=== PATIENT | female | born 2000 | race African-American/Black ===

== ENCOUNTER 2023-02-05 13:47 | Emergency (ER) | payer OTHER, SELFPAY ==
--- NOTE | ~2023-02-05 | XR_ITS ---
EXAMINATION: XR lumbar spine min 4V DATE: 02/05/2023 15:28 INDICATION: Low back pain TECHNIQUE: Anteroposterior, lateral, and bilateral oblique views of the lumbar spine, and cone-down l ateral view of the lumbosacral junction were obtained. COMPARISON: None. FINDINGS: No fracture, dislocation, or subluxation. The vertebral body heights, alignment, and interv ertebral disc spaces are normal. The paravertebral soft tissues are unremarkable. IMPRESSION: 1. No acute osseous abnormality. Reviewed, dictated and finalized at location L.
[2023-02-05 13:49] VITALS: BP 99/66; PULSE 108; RESP 20; TEMP 36.8; O2SAT 100
[2023-02-05] MEDS: ACETAMINOPHEN 500 MG TABLET 1000 MG PO (15:10)
[2023-02-05] MEDS: KETOROLAC (*BKC) 60 MG/2 ML VIAL IM (15:14)
--- NOTE | 2023-02-05 15:36 | ED.BACK ---
HPI - Back Pain/Injury General Chief Complaint: Back Pain/Injury Stated Complaint: back pain Time Seen by Provider: 02/05/23 14:20 Source: patient Mode of arrival: ambulatory Limitations: no limitations History of Present Illness HPI Narrative: Patient is a 22 y/o female who presents to the ED with complaints of low back pain. Patient reports the pain has been ongoing intermittently for the last couple of weeks. Worse with movement, worse with standing upright for long periods of time. She denies any known injury, but does report frequent heavy lifting with her job. Pain became worse today and began radiating down her posterior left leg. Does not radiate to abdomen. Patient has not tried anything for pain. She denies any saddle anesthesia, weakness of her lower extremities, abdominal pain, nausea, vomiting, incontinence of bowel or bladder, dysuria, hematuria. Patient does report she was told she had a UTI a few weeks ago at [facility], but was not prescribed antibiotics at that time. Related Data Allergies Allergy/AdvReac Type Severity Reaction Status Date / Time No Known Allergies Allergy Verified 02/05/23 13:52 Review of Systems Review of Systems: CONSTITUTIONAL: Denies fever, chills, or sweats. GASTROINTESTINAL: Denies abdominal pain, nausea, vomiting, or diarrhea. GENITOURINARY: Denies dysuria or hematuria. MUSCULOSKELETAL: See HPI. NEUROLOGIC: See HPI. All systems reviewed & are unremarkable except as noted in HPI and below Exam Narrative: GENERAL: Well appearing, thin, non-toxic, in no acute distress. HEAD: Normocephalic, atraumatic. NECK: Supple. No adenopathy, no masses. RESPIRATORY: Airway patent, respirations nonlabored. Clear to auscultation bilaterally, no rales, rhonchi, wheezing. CARDIOVASCULAR: Regular rate and rhythm without murmurs, rubs, or gallops. Peripheral pulses 2+ and equal bilaterally. MUSCULOSKELETAL: Moves all extremities. Strength/ROM intact without gross deformities. No significant midline lumbar spinal tenderness. Tenderness to palpation throughout left-sided lumbosacral region, no particular SI joint tenderness. No bony deformities. Sensation intact. Negative straight leg raise on left. Negative CVA tenderness. SKIN: Warm, dry, normal color. No rashes. NEURO: A&O X3. Speech clear. Cranial nerves II-XII grossly intact. Steady gait. No ataxic movements. PSYCHIATRIC: Appropriate mood and affect. Normal interaction. Course Vital Signs Vital signs: Vital Signs Temperature 98.2 F 02/05/23 13:49 Pulse Rate 108 H 02/05/23 13:49 Respiratory Rate 20 02/05/23 13:49 Blood Pressure 99/66 L 02/05/23 13:49 Pulse Oximetry 100 02/05/23 13:49 Oxygen Delivery Room Air 02/05/23 13:49 Temperature 98.2 F 02/05/23 13:49 Pulse Rate 108 H 02/05/23 13:49 Respiratory Rate 20 02/05/23 13:49 Blood Pressure 99/66 L 02/05/23 13:49 Pulse Oximetry 100 02/05/23 13:49 Oxygen Delivery Room Air 02/05/23 13:49 MDM - Back Pain/Injury MDM Narrative Medical decision making narrative: Patient presented to ED with several week history of low back pain, worse today. Patient's pain is positional and localized to left-sided paraspinal muscles without signs of cord compression or cauda equina. Normal neurologic exams. No red flag symptoms. No fever noted and no significant risk factors for osteomyelitis or spinal epidural abscess. No symptoms or signs to suggest pain is referred from abdominal or source. X-ray of lumbar spine without acute abnormalities. Patient denying urinary symptoms, however she did report a possible diagnosis of UTI a few weeks ago but was not treated for this. Urinalysis here today consistent with infection with 1+ leuk esterase, 21-50 WBC. Sent for culture. Will treat with Keflex, given first dose in the ED. Patient feeling better with supportive therapy. Resting comfortably on reevaluation. Vitals have remained stable. She am
[2023-02-05 15:39] LABS: Appearance Urine Clear (Clear); Bacteria Urine None Seen /hpf; Bilirubin Urine Negative (Negative); Color Urine Yellow (Yellow); Glucose Urine UA Negative (Negative); Ketones Urine Negative (Negative); Leukocyte Esterase Ur 1+ LEU/UL (Negative); Nitrate Urine Negative (Negative); Protein Urine Trace mg/dL (Negative); Specific Grav Ur 1.025 (1.001-1.035); Squamous Epithelial Cell Urine Occasional /hpf (Few); WBC Urine 21-50 /hpf
[2023-02-05 15:40] LABS: Add Urine Microscopic? YES
[2023-02-05] MEDS: CEPHALEXIN 500 MG CAPSULE PO (16:01)
[2023-02-05 18:15] VITALS: BP 99/60; PULSE 80; RESP 16; O2SAT 100
== END 2023-02-05 18:15 | disposition home or self-care (01) ==
PROVIDERS: Emergency Provider Physician Assistant; PCP Nurse Practitioner Family
DX: M54.16 Radiculopathy, lumbar region (principal); S39.012A Strain of muscle, fascia and tendon of lower back, initial encounter; N30.01 Acute cystitis with hematuria; X58.XXXA Exposure to other specified factors, initial encounter
CPT/HCPCS: 72110; 81001; 81025; 87086; 87088; 96372; 99283; A9270; J1885

== ENCOUNTER 2024-12-03 14:43 | Emergency (ER) | payer MEDICAID, SELFPAY ==
[2024-12-03 14:53] VITALS: BP 120/61; PULSE 91; RESP 20; TEMP 36.8; O2SAT 100
--- NOTE | 2024-12-03 14:53 | ED.FEMALEGU ---
HPI - Female Genitourinary General Chief complaint: OB/Uterine Contractions Stated complaint: cramping Time Seen by Provider: 12/03/24 14:54 Source: patient, RN notes reviewed and old records reviewed Mode of arrival: ambulatory Limitations: no limitations History of Present Illness HPI Narrative: 24 year old female accompanied by significant other [facility] who is approximately 18-19 weeks with complaints of 2 week duration with discomfort in buttock which was worse yesterday. Patient reports that intermittent episodes of gluteal pain that is sharp and rates pain 5-6. Patient reports that the lower abdomen groin area discomfort is like a pulling sensation at times but not sharp pain. Patient reports that approximately 2 weeks ago had small amount of white discharge and was told to use OTC Monistat by SENIOR ACCOUNT CLERK which she did. Patient reports that she has been followed by Maite Krishnamurthy secondary connector armature at [facility] in [place]. Patient reports that she has not called her office about complaints of gluteal buttock pain or any lower abdomen cramping pulling sensation. Patient denies any fevers, chills or any burning or pain with urination. reports that she has been drinking plenty of water. MD elicited complaint: other (buttock gluteal pain and some lower groin cramping) Onset (ago): week(s) (2 weeks increased since yesterday) Location of symptoms: pelvis (lower abdomen pulling cramping at times) and other (buttocks) Severity: moderate Severity scale (1-10): 5 (buttocks) Quality of pain: sharp Consistency: intermittent Vaginal discharge: none Vaginal bleeding: none Treatment prior to arrival: none Date of Last Menstrual Period: 06/14/24 Expected Date of Delivery: 04/29/25 Related Data Home Medications ?Medication ?Instructions ?Recorded ?Confirmed ?Last Taken ?Type No Home Medications 12/03/24 12/03/24 Unknown History Allergies Allergy/AdvReac Type Severity Reaction Status Date / Time No Known Allergies Allergy Verified 12/03/24 16:28 Review of Systems Review of Systems: CONSTITUTIONAL: Denies fever, chills, or sweats. EYES: Denies visual changes, redness, or discharge. ENT: Denies rhinorrhea, congestion, sore throat, or otalgia. CARDIOVASCULAR: Denies chest pain, palpitations, or edema. RESPIRATORY: Denies cough or dyspnea. GASTROINTESTINAL: reports lower pelvic pulling sensation, crampy denies any, nausea, vomiting, or diarrhea. GENITOURINARY: Denies dysuria or hematuria. SKIN: Denies rash or itching. MUSCULOSKELETAL: Denies back pain, joint pain, reports intermittent sharp pain to the gluteal buttock region for the past 2 weeks NEUROLOGIC: Denies headache, numbness, or weakness. PSYCHIATRIC: Denies anxiety or depression. All systems reviewed & are unremarkable except as noted in HPI and below PMFSH Past Medical History Medical History (Updated 12/03/24 @ 16:47 by Hannah Da Silva NP) Ovary, inflammation surgery to remove inflammatory tissue Social History Social History (Updated 12/03/24 @ 16:31 by Hannah Da Silva NP) Smoking status: Never smoker Alcohol intake: former Substance use type: does not use Living arrangements: other Additional living arrangements comments: with significant other Gender identity (if verbalized by the patient): Female Comments At time of signature, agree with nursing past medical, surgical, social and family history. There is no relevant family history pertinent to the presenting complaint Exam Narrative: GENERAL: Well-appearing, well-nourished, and in no acute distress. HEAD: Normocephalic, atraumatic. EYES: PERRLA and EOMI. ENT: Nares clear, no rhinorrhea or epistaxis. Mucous membranes moist. NECK: Supple. no lymphadenopathy CHEST: Clear to auscultation. No respiratory distress. SAO2 100% on room air HEART: Regular rate and rhythm. No murmur heard. Normal peripheral pulses. ABDOMEN: Soft, nontender on palpation, 18-19 weeks , normal active bowel sounds, reports intermittent sharp buttock/gluteal pain denies any pain in lower back or in legs. no difficulty passing urine or stool. EXTREMITIES: Normal range of motion. No edema. SKIN: Warm, dry, no rash. NEURO: No focal deficits. Alert and oriented x3. Course Course Emergency Course: Patient is aware of diagnosis, understands and agrees to treatment plan.? Anticipatory guidance given.? Patient agrees to follow-up as directed and is aware of reasons to seek care at the emergency department. Portions of this record may have been created with voice recognition software Level of Care: Express Care Visit Vital Signs Vital signs: Vital Signs Temperature 36.8 C 12/03/24 14:53 Pulse Rate 91 04/26/25 14:53 Respiratory Rate 20 12/03/24 14:53 Blood Pressure 120/61 12/03/24 14:53 Pulse Oximetry 100 12/03/24 14:53 Oxygen Delivery Room Air 12/03/24 14:53 Temperature 36.8 C 12/03/24 14:53 Pulse Rate 91 12/03/24 14:53 Respiratory Rate 20 12/03/24 14:53 Blood Pressure 120/61 12/03/24 14:53 Pulse Oximetry 100 12/03/24 14:53 Oxygen Delivery Room Air 12/03/24 14:53 Reviewed Transfer Transfered to: [facility] Transportation: Other (private car with significant other) Transfer rationale: Patient is 18-19 weeks having some lower abdomen pulling cramping sensation intermittent mild and sharp intermittent pain to buttock/gluteal area non radiating for 2 week duration need further testing Accepting physician: Dr Miranda Transfer comments: To [facility] ED per private car with significant other MDM - Female Genitourinary MDM Narrative Medical decision making narrative: Call placed to the emergency department at [facility] and spoke with Lesvia BHATTI with condition update,VS, urine report and PMH reviewed with Dr Miranda accepting patient for transfer. Differential Diagnosis Differential diagnosis: Likely urinary tract infection, cystitis and other (pelvic discomfort, sharp buttock gluteal pain, possible abnormality) Medical Records Attestation: I reviewed the patient's medical records. Lab Data Attestation: I reviewed the patient's lab results. Labs: Lab Results 12/03/24 Range/Units 15:11 POC Urine Color Yellow POC Urine Clarity Clear POC Urine pH 7.0 POC Ur Specif [place] 1.020 POC Urine Protein Negative (Negative) POC Ur Glucose (UA) Negative (Negative) POC Urine Ketones Negative (Negative) POC Urine Blood Negative (Negative) POC Urine Nitrite Negative (Negative) POC Urine Bilirubin Negative (Negative) POC Urine Urobilinogen 0.2 POC U Leukocyte Esteras 1+ (Negative) reviewed Critical Care Time Critical Care Time Critical Care Time: No Discharge Plan Discharge Clinical Impression: Gluteal pain, Pelvic cramping Patient Disposition: Acute Care Hospital Condition: Stable Patient Language: [place] Prescriptions: No Action No Home Medications Follow-up/Referrals: PHYSICIAN NOT ON STAFF,NONSTAFF [Primary Care Provider] - Time of Disposition: 14:43 Quality [place] Coma Scale Eyes: Open Verbal: Oriented and Alert Motor: Follows Commands Jero Coma Total Score: 15
[2024-12-03 15:13] LABS: EDUAAPPEAR Clear; EDUABILI Negative (Negative); EDUABLOOD Negative (Negative); EDUACOLOR1 Yellow; EDUAGLUCOSE Negative (Negative); EDUAKETONE Negative (Negative); EDUALEUKO 1+ (Negative); EDUANITRATE Negative (Negative); EDUAPROTEIN Negative (Negative); EDUAUROBILI 0.2
== END 2024-12-03 15:45 | disposition short-term general hospital (02) ==
PROVIDERS: Emergency Provider Registered Nurse
DX: O99.891 Other specified diseases and conditions complicating pregnancy (principal); Z3A.00 Weeks of gestation of pregnancy not specified; R52 Pain, unspecified; R10.2 Pelvic and perineal pain
CPT/HCPCS: 81003; 99212; G0463

== ENCOUNTER 2024-12-03 16:27 | Emergency (ER) | payer MEDICAID, SELFPAY ==
--- NOTE | ~2024-12-03 | US_ITS ---
LIMITED OBSTETRIC ULTRASOUND Ordering provider: Lesvia Levine APRN History: . low abdom pain, recent ovarian surgery, . Comparison: None. FINDINGS: PRESENTATION: Vertex. Longitudinal lie. PLACENTAL LOCATION: Posterior No previa. HEART RATE: 146 bpm (normal is between 110 to 160 bpm). OTHER: Right ovary measures 2.3 x 1.5 x 1.6 cm. Left ovary measures 2.8 x 2.2 x 2.6 cm. IMPRESSION: Single live fetus of cephalic presentation. Reviewed, dictated and finalized at location A.
--- OUTSIDE RECORDS SUMMARY | 2024-12-03 16:29 | XMS_ITS | Referral Summary ---
Author Organization [facility] Address [address] [place] [id number] Care Team Providers Care Rn Examiner Name Role Phone Unknown, Notinfile Primary Care Provider Unavail able Allergies No known active allergies Social History Tobacco Use Types Packs/Day Years Used Date Smoking Tobacco: Never Assessed Personal Safety Answer Date Recorded Getting School Help Needed Not on file 04/17 Comments No Sex and Gender Information Value Date Recorded Sex Assigned at Not on file Legal Sex Female 11:39 PM PRODUCT DEVELOPMENT COORDINATOR Gender Identity Not on file Sexual Orientation Not on file Last Filed Vital Signs Vital Sign Reading Time Taken Comments Blood Pressure 114/64 03/16/2023 2:50 PM CDT Pulse 86 03/16/2023 2:50 PM CDT Temperature 36.9 C (98.4 F) 03/16/2023 11:41 AM CDT Respiratory Rate 18 03/16/2023 11:41 AM CDT Oxygen Saturation 100% 03/16/2023 2:50 PM CDT Inhaled Oxygen Concentration - - Weight 55.5 kg (122 lb 5.7 oz) 03/16/2023 11:41 AM CDT Height 165.1 cm (5' 5 ) 03/16/2023 11:41 AM CDT Body Mass Index 20.36 03/16/2023 11:41 AM CDT Plan of Treatment Not on file [place] [address] [place] [id number] Care Teams Rn Examiner Relationship Specialty Start Date End Date Unknown, Notinfile PCP - General 12/18/22
--- OUTSIDE RECORDS SUMMARY | 2024-12-03 16:29 | XMS_ITS | Encounter Summary ---
Author Organization [facility] Address [address] [place] [id number] Care Team Providers Care Employment Specialist Name Role Phone None, Provider Primary Care Provider Rd Blackman MD Primary Care Provider Encounter Details Date Type Department Care Team (Late st Contact Info) Description 06/22/2024 Prep for Procedure [facility] [place] [address] Rd Herring MD [address] [place] [address] Social History Tobacco Use Types Packs/Day Years Used Date Smoking Tobacco: Never Smokeless Tobacco: Never Comments:Currently vaping Alcohol Use Standard Drinks/Week Comments No 0 (1 standard drink = 0.6 oz pur e alcohol) Comments No Sex and Gender Information Value Date Recorded Sex Assigned at Not on file Legal Sex Female 6:54 PM CDT Gender Identity Not on file Sexual Orientation Not on file documented as of this encounter Functional Status * Calculated C-SSRS Risk Score (Lifetime/Recent) Answer Date of Assessment Author Status No Risk Indicated 06/23/2024 12:25 PM Tamiko Camarillo RN Active * [place] Suicide Severity Rating Scale (Screener/Recent Self-Report) Question Answer Date of Assessment Author Status 1. Wish to be (Past 1 Month) No 06/23/2024 12:25 PM Tamiko Camarillo RN Active 2. Non-Specific Active Suicidal Thoughts (Past 1 Month) No 06/23/2024 12:25 PM Tamiko Camarillo RN Active 6. Suicidal Behavior (Lifetime) No 06/23/2024 12:25 PM Tamiko Camarillo RN Active documented as of this encounter Plan of Treatment Not on file documented as of this encounter Results * (ABNORMAL) CBC W/DIFF AUTOMATED (06/23/2024 12:06 PM COSTUME MISTRESS) [facility] WBC 10.08 4.5 - 11.0 x10'3/uL 06/23/2024 12:14 PM [facility] RBC 4.46 4.20 - 5.40 x10'6/uL 06/23/2024 12:14 PM [facility] HGB 12.2 12.0 - 16.0 G/DL 06/23/2024 12:14 PM [facility] HCT 37.2(L) 38.0 - 48.0 % 06/23/2024 12:14 PM [facility] MCV 83.4 81.0 - 99.0 FL 06/23/2024 12:14 PM [facility] MCH 27.4 27.0 - 31.0 PG 06/23/2024 12:14 PM [facility] MCHC 32.8 32.0 - 36.0 G/DL 06/23/2024 12:14 PM [facility] RDW 14.2 11.5 - 14.5 % 06/23/2024 12:14 PM [facility] PLT 182 130 - 400 x10'3/uL 06/23/2024 12:14 PM [facility] MPV 9.9 9.3 - 12.2 FL 06/23/2024 12:14 PM [facility] DIFFERENTIAL TYPE AUTOMATED DIFFERENTIAL 06/23/2024 12:14 PM [facility] NEUTROPHILS % 52.7 % 06/23/2024 12:14 PM [facility] LYMPHOCYTES % 37.7 % 06/23/2024 12:14 PM COSTUME MISTRESS [facility] MONOCYTES % 7.4 % 06/23/2024 12:14 PM [facility]STUME MISTRESS [facility] EOSINOPHILS 1.3 % 06/23/2024 12:14 PM [facility]STUME MISTRESS [facility] BASOPHILS 0.6 % 06/23/2024 12:14 PM COSTUME MISTRESS [facility] IMMATURE GRANS % 0.3 % 06/23/20 12:14 PM COSTUME MISTRESS [facility] ABS. NEUTROPHILS 5.31 1.80 - 7.70 x10'3/uL 06/23/2024 12:14 PM COSTUME MISTRESS [facility] ABS. LYMPHOCYTES 3.80 1.00 - 4.80 x10'3/uL 06/23/2024 12:14 PM COSTUME MISTRESS [facility] ABS. MONOCYTES 0.75 0.24 - 0.86 x10'3/uL 06/23/2024 12:14 PM COSTUME MISTRESS [facility] ABS. EOSINOPHILS 0.13 0.04 - 0.36 x10'3/uL 06/23/2024 12:14 PM COSTUME MISTRESS [facility] ABS. BASOPHILS 0.06 0.01 - 0.08 x10'3/uL 06/23/2024 12:14 PM COSTUME MISTRESS [facility] ABS. IMMATURE GRANULOCYTES 0.03 0.00 - 0.49 x10'3/uL 06/23/2024 12:14 PM COSTUME MISTRESS [facility] 06/23/2024 12:[address] Herring MD LABORATORY Final Result [facility] [address] [place] [address], [place] [phone] documented in this encounter Visit Diagnoses Diagnosis Menometrorrhagia- Primary Excessive or frequent menstruation documented in this encounter Care Teams Employment Specialist Relationship Specialty Start Date End Date None, Provider, PCP - General 08/07/21 06/22/24 Rd Herring MD [address] [place] [address] PCP - General HOSPITALIST 06/23/24 documented as of this encounter
--- OUTSIDE RECORDS SUMMARY | 2024-12-03 16:29 | XMS_ITS | Clinical Summary ---
Author Organization [facility] Address [address] [place] [phone] Care Team Providers Care Holistic Nutritionist Name Role Phone Unknown, Notinfile Primary Care Provider Unavail able Allergies No known active allergies Social History Tobacco Use Types Packs/Day Years Used Date Smoking Tobacco: Never Assessed Personal Safety Answer Date Recorded Getting School Help Needed Not on file 04/17 Comments No Sex and Gender Information Value Date Recorded Sex Assigned at Not on file Legal Sex Female 11:39 PM PREPARER MAKING DEPARTMENT Gender Identity Not on file Sexual Orientation [...] 03/16/2023 11:41 AM CDT Plan of Treatment Health Maintenance Due Date Last Done Comments Cervical Cancer Screening 2000 Depression Screening 2000 Hepatitis C Screening 2000 Regular Well Visit/Exam 18-64 2018 DTaP/Tdap/Td Vaccine (6 - Td or Tdap) 06/23/2021 06/23/2011, 06/12/2004, 05/11/2004, Additional history exists Covid-19 Vaccine (2023-2 5 season) 2024 12/29/2020, 11/27/2020 Influenza Vaccine (Season Ended) 2025 07/02/2015, 06/25/2015, 06/23/2011, Additional history exists Pneumococcal vaccine <65 Completed 003, 05/09/2002, 01/05/2002 Varicella Vaccines Completed 08/22/2009, 0 09/25/2006, 05/09/2002 Hepatitis B Screening Completed 08/26/2010 , 03/06/2002, 01/05/2002, Additional history exists HPV Vaccines Completed 03/14/2015, 09/10, 12/23/2013, Additional history exists Insurance Care Teams Holistic Nutritionist Relationship Specialty Start Date End Date Unknown, Notinfile PCP - General 12/18/22
--- OUTSIDE RECORDS SUMMARY | 2024-12-03 16:29 | XMS_ITS | Clinical Summary ---
Author Organization [facility] Address [address] [place] [id number] Care Team Providers Care Delicatessen Department Manager Name Role Phone Rd Herring MD Primary Care Provider [phone] Allergies No known active allergies Medications doxycycline hyclate (VIBRA-TABS) 100 MG tabletIndication s:Status post hysteroscopy Take 1 tablet (100 mg total) by mouth 2 (two) times daily. 14 tablet 4 Active estradiol (ESTRACE) 1 MG tabletIndication s:Status post hysteroscopy Take 1 tablet (1 mg total) by mouth daily. 1 mg bid x 5 days 10 tablet 4 Active hydrOXYzine (VISTARIL) 25 MG capsuleIndicatio ns:Status post hysteroscopy Take 1-2 capsules (25-50 mg total) by mouth 4 (four) times daily as needed for Itching or Anxiety (insomnia, nausea or pain). May substitute tabs and or any form of hydroxyzine 30 capsule 2 4 Active oxyCODONE-acetam inophen (PERCOCET) 5-325 MG tabletIndication s:Acute Pain < 3 Day Supply Take 1 tablet by mouth every 4 (four) hours as needed. Indications: Acute Pain < 3 Day Supply 8 tablet 4 Active Active Problems No known active problems Social History Tobacco Use Types Packs/Day Years Used Date Smoking Tobacco: Never Smokeless Tobacco: Never Tobacco Cessation:Counseling Given: Not Answered Comments:Currently vaping Alcohol Use Standard Drinks/Week Comments No 0 (1 standard drink = 0.6 oz pur e alcohol) Comments No Sex and Gender Information Value Date Recorded Sex Assigned at Not on file Legal Sex Female 6:54 PM CDT Gender Identity Not on file Sexual Orientation Not on file Last Filed Vital Signs Vital Sign Reading Time Taken Comments Blood Pressure 97/79 06/23/2024 4:35 PM TRAVEL REGISTERED NURSE NICU Pulse 82 06/23/2024 4:35 PM TRAVEL REGISTERED NURSE NICU Temperature 36.9 C (98.5 F) 06/23/2024 4:35 PM TRAVEL REGISTERED NURSE NICU Respiratory Rate 18 06/23/2024 4:35 PM TRAVEL REGISTERED NURSE NICU Oxygen Saturation 100% 06/23/2024 4:35 PM TRAVEL REGISTERED NURSE NICU Inhaled Oxygen Concentration - - Weight 56.6 kg (124 lb 12.5 oz) 024 12:25 PM TRAVEL REGISTERED NURSE NICU Height 162.6 cm (5' 4 ) 06/23/2024 12:2 5 PM TRAVEL REGISTERED NURSE NICU Body Mass Index 21.42 06/23/2024 12:25 PM TRAVEL REGISTERED NURSE NICU Plan of Treatment Health Maintenance Due Date Last Done Comments Annual Physical 2003 Hepatitis C 2018 DTaP, Tdap and Td Vaccines (7 - Td or Tdap) 06/23/2021 06/23/2011, 06/12/2004, 10/25/2002, Additional history exists COVID-19 Vaccine ( season) 2024 12/29/2020, 11/27/2020 Cervical Cancer Screening Pap Smear (Age 21 to 29) Every 3 Years 12/18/2025 12/18/2022 Cervical Cancer Screening 12/18/2025 Pneumococcal Vaccine: Pediatrics (0 to 5 Years) and At-Risk Patients (6 to 49 Years) Aged Out 10/25/2002, 05/09/2002, 01/05/2002 No longer eligible based on patient's age to complete this topic Hepatitis B Vaccines Completed 08/26/2010, 03/06/2002, 01/05/2002, Additional history exists HPV Vaccines Completed 03/14/2015, 09/10, 12/23/2013 Meningococcal Vaccine Completed 05/26/2019, 011 Meningococcal B Vaccine Aged Out No l onger eligible based on patient's age to complete this topic RSV Immunizations Under 20 Months Aged Out No longer eligible based on patient's age to complete this [place] [address] [place] Advance Directives * Full Code (Latest Code Status on File) Date Activated Date Inactivated Comments 06/23/2024 2:56 PM 06/23/2024 6:59 PM Care Teams Delicatessen Department Manager Relationship Specialty Start Date End Date Rd Herring MD [address] [place] [address] PCP - General HOSPITALIST 06/23/24
--- OUTSIDE RECORDS SUMMARY | 2024-12-03 16:29 | XMS_ITS | Data Portability ---
Author Organization [employer] , [facility] Address [address] [place] [address] Assessment No assessment recorded. Plan of Treatment Reminders Order Date Submit Date Provider Last Modified By Organization Details Last Modified Time Details Appointments OB 1ST VISIT EST 2024 03:15P Yani levy, CNYani Not available Not available Not available Lab hemoglobi n A1c, QN, blood 2024 025 [facility], [address] [place] [address], [address], 10/14/2024 13:21:50 abo group + rh type, blood 2024 025 [facility], [address], [place], [address], 10/26/2024 16:01:50 CBC w/ auto diff 2024 025 [facility] [place] [facility], [address] [place] [address], [address], 10/14/2024 10:56:12 CT + NG DNA, PCR, unspecifi ed specimen 2024 025 [employer], [address] [place] [address], [address], 10/13/2024 09:25:03 drug of abuse panel, urine 2024 025 [facility], [address] [place] [address], [address], 10/14/2024 13:21:51 obstetric screen + HIV, serum or blood 2024 025 [facility], [address] [place] [address], [address], 10/13/2024 09:23:12 measles igg Ab, serum 2024 025 [facility], [address] [place], [address], 10/13/2024 13:15:16 culture, urine 2024 025 [facility], [address] [place], [address], 10/13/2024 13:15:17 varicella -zoster igg Ab screen, serum 2024 025 [facility], [address] [place], [address], 10/13/2024 13:15:15 hemoglobi nopathy profile, blood 2024 025 [facility], [address] [place], [address], 10/26/2024 16:01:50 antibody screen, serum or plasma 2024 025 [facility], [address] [place], [address], 10/13/2024 13:15:16 test, urine 2024 025 [email or web address] [facility] [address], [address], 10/03/2024 17:59:29 Referral None recorded. Procedures None recorded. Surgeries None recorded. Imaging US, transvagi nal 2024 025 RAYMOND Not available 10/11/2024 02:10:29 US, transvagi nal 2024 025 Not available 10/19/2024 19:16:09 US, kenji nal 2023 024 Not available 06/22/2024 15:55:20 Medication Orders 28 mg iron-800 mcg tablet 2024 025 [id number], [address], [place], [id number], 10/03/2024 18:08:32 metoclopr amide 10 mg tablet 2024 025 [facility] #[id number], [address], [place], [id number], 10/03/2024 18:08:33 Patient TargetsNo targets recorded. Patient InstructionsNo instructions recorded. Reason for Referral None Reported. Results Created Date Observation Date Name Description Value Unit Range Abnormal Flag Note LastModifiedBy Organization Detail LastModifiedTime 05/26/2005/26/2024 TSH W/ T4, FREE TSH 2.56 mIU/L 0.55 - 4.78 normal Refer ence Range Femal e aged 18-Ad ult: 0.55- 4.78 Pregn paddy Refer ence Range s First Trime ster 0.26- 2.66 Secon d Trime ster 0.55- 2.73 Third Trime ster 0.43- 2.91 Not [place], [address], 05/26/2024 12:12:20 05/26/2005/26/2024 TSH W/ T4, FREE T4, free 1.19 NG/dL 0.89 - 1.76 normal Not [place], [address], 05/26/2024 12:12:20 06/02/2006/02/2024 MAGNE SIUM magnesium 1.9 mg/dL 1.5-2. 5 normal Not Available [employer] [facility] [address] [place], [address], 06/02/2024 13:50:12 06/02/2006/02/2024 TESTO STERO NE, FREE (DIAL YSIS) AND TOTAL ,MS testosterone , total, MS 40 NG/dL 2-45 For addit ional infor janusz mejia refer to https ://ed ucati on.qu charlieLengow. com/f aq/FA Q165 (This link is being provi ded for infor mathenri nal/e ducat ional purpo ses only. ) (Note ) This test was devel oped and its jody tical perfo rmanc e kamilah cteri stics have been deter mined by [employer]. It has not been clear ed or appro ed by the FDA. This assay has been valid ated pursu ant to the CLIA regul ation s and is used for clini kim purpo ses. Not Available [employer] [address], [address], 06/02/2024 13:50:13 06/02/20 24 06/02/2024 TESTO STERO NE, FREE (DIAL YSIS) AND TOTAL ,MS testosterone , free 4.7 pg/mL 0.1-6. 4 (Note ) This test was devel oped and its jody tical perfo rmanc e kamilah cteri stics have been deter mined by [employer] diane. It has not been clear ed or appro ed by the FDA. This assay has been valid ated pursu ant to the CLIA regul ation s and is used for clini kim purpo ses. MDF med fusio n [address] [facility] [address] [phone] Elif Laird MD, PhD NO COLLE CTION DATE RECEI ED. WE HAVE USED THE DATE THE SPECI MEN WAS RECEI ED BY THIS LABOR ATORY THE COLLE CTION DATE. IF THIS IS INCOR RECT, PLEAS E CONTA CT CLIEN T SERVI YANN. PHONE NUMBE R: [phone] Not Available [employer] [facility] [address] [place], [address], 06/02/2024 13:50:13 05/25/2005/26/2024 HEMOG LOBIN A1C hemoglobin A1C 4.7 % <5.7 normal The refer ence range for HbA1c is indic ated in the table below . Sugge sted Diagn osis =6.5% Consi stent with diabe kalyn 5.7 6.4% Consi stent with incre ased risk for diabe kalyn (pred iabet ic) <5.7% Consi stent with the absen ce of diabe kalyn Not Available [facility] [address] [place], [address], 05/26/2024 12:01:55 05/25/2005/26/2024 FSH AND LH FSH 0.3 mIU/m L Refer ence Range s are for femal es aged 18 years - Adult Shira l Menst ruati ng Femal e: Folli cular phase : 2.5-1 0.2 mIU/m L Mid-C ycle Peak: 3.4-3 3.4 mIU/m L Lutea l phase : 1.5-9 .1 mIU/m L Pregn ant: <0.3 mIU/m L Post- menop ausal : 23.0- 116.6 mIU/m L Not Available [facility] [address] [place], [address], 05/26/2024 12:12:28 05/25/20 24 05/26/2024 FSH AND LH LH < 0.07 U/L Refer ence Range s are for femal es aged 18 years - Adult Shira l Menst ruati ng Femal e: Folli cular phase : 1.9-1 2.5 mIU/m L Mid-C ycle Peak: 8.7-7 6.3 mIU/m L Lutea l phase : 0.5-1 6.9 mIU/m L Pregn ant: <0.1- 1.5 mIU/m L Post- menop ausal : 15.9- 54.0 mIU/m L Contr acept huan: 0.7-5 .6 mIU/m L Not Available [address], [address], 05/26/2024 12:12:28 05/25/2005/26/2024 PROLA CTIN prolactin 21.5 NG/mL Refer ence Range s Femal e aged 18-Ad ult Nonpr egnan t: 2.8-2 9.2 ng/mL Pregn ant: 9.7-2 08.5 ng/mL Post- menop ausal : 1.8-2 0.3 ng/mL Pregn paddy, lacta tion, and the admin istra tion of oral contr acept huan can incre ase prola ctin john ntrat ions. Not Available [address], [address], 05/26/2024 12:12:29 05/25/20 24 05/26/2024 CBC (INCL UDES DIFF/ PLT) WBC 8.2 thous and/u L 4.0 - 9.8 normal Not Available [address], [address], 05/26/2024 12:23:12 05/25/20 24 05/26/2024 CBC (INCL UDES DIFF/ PLT) RBC 4.5 mary anne on/uL 3.9 - 4.9 normal Not Available [address], [address], 05/26/2024 12:23:12 05/25/20 24 05/26/2024 CBC (INCL UDES DIFF/ PLT) hemoglobin 12.3 g/dL 11.8 - 14.8 normal Not Available [address], [address], 05/26/2024 12:23:12 05/25/20 24 05/26/2024 CBC (INCL UDES DIFF/ PLT) hematocrit 37.0 % 35.5 - 44.0 normal Not Available [facility] [address] [place] [address], [address], 05/26/2024 12:23:12 05/25/20 24 05/26/2024 CBC (INCL UDES DIFF/ PLT) MCV 82.0 fL 82.0 - 99.0 normal Not Available [address], [address], 05/26/2024 12:23:12 05/25/2005/26/2024 CBC (INCL UDES DIFF/ PLT) MCH 27.3 pg 27.2 - 32.6 normal Not Available [address], [address], 05/26/2024 12:23:12 05/25/2005/26/2024 CBC (INCL UDES DIFF/ PLT) MCHC 33.2 g/dL 31.5 - 35.5 normal Not Available [address], [address], 05/26/2024 12:23:12 05/25/2005/26/2024 CBC (INCL UDES DIFF/ PLT) RDW-CV 14.2 % 11.5 - 14.5 normal Not Available [address], [address], 05/26/2024 12:23:12 05/25/20 24 05/26/2024 CBC (INCL UDES DIFF/ PLT) platelet 183 thous and/u L 140 - 350 normal Not Available [address], [address], 05/26/2024 12:23:12 05/25/2005/26/2024 CBC (INCL UDES DIFF/ PLT) MPV 11.0 fL 9.3 - 12.4 normal Not Available [address], [address], 05/26/2024 12:23:12 05/25/20 24 05/26/2024 CBC (INCL UDES DIFF/ PLT) absolute neutrophil 4.44 thous and/u L 1.90 - 7.00 normal Not Available [address], [address], 05/26/2024 12:23:12 05/25/2005/26/2024 CBC (INCL UDES DIFF/ PLT) absolute lymphocyte 2.90 thous and/u L 0.70 - 4.50 normal Not Available [address], [address], 05/26/2024 12:23:12 05/25/20 24 05/26/2024 CBC (INCL UDES DIFF/ PLT) absolute monocyte 0.67 thous and/u L 0.10 - 1.30 normal Not Available [address], [address], 05/26/2024 12:23:12 05/25/20 24 05/26/2024 CBC (INCL UDES DIFF/ PLT) absolute eosinophil 0.15 thous and/u L <0.70 normal Not Available [address], [address], 05/26/2024 12:23:12 05/25/20 24 05/26/2024 CBC (INCL UDES DIFF/ PLT) absolute basophil 0.06 thous and/u L <0.20 normal Not Available [address], [address], 05/26/2024 12:23:12 05/25/20 24 05/26/2024 CBC (INCL UDES DIFF/ PLT) absolute immature granulocyte 0.02 thous and/u L <0.03 normal Not Available [address], [address], 05/26/2024 12:23:12 06/23/20 24 06/23/2024 CBC WITH DIFF WBC 10.08 x10'3 /uL 4.5-11 .0 Not Available [facility] (Lab) One [facility], [place], [address], 06/23/2024 13:14:36 06/23/20 24 06/23/2024 CBC WITH DIFF RBC 4.46 x10'6 /uL 4.20-5 .40 Not Available [facility] (Lab) [address], [place], [address], 06/23/2024 13:14:36 06/23/20 24 06/23/2024 CBC WITH DIFF hemoglobin 12.2 g/dL 12.0-1 6.0 Not Available [facility] (Lab) [address], [place], [address], 06/23/2024 13:14:36 06/23/2006/23/2024 CBC WITH DIFF hematocrit 37.2 % 38.0-4 8.0 low Not Available [facility] (Lab) [address], [place], [address], 06/23/2024 13:14:36 06/23/20 24 06/23/2024 CBC WITH DIFF MCV 83.4 fL 81.0-9 9.0 Not Available [facility] (Lab) [address], [place], [address], 06/23/2024 13:14:36 06/23/20 24 06/23/2024 CBC WITH DIFF MCH 27.4 pg 27.0-3 1.0 Not Available [facility] (Lab) [address], [place], [address], 06/23/2024 13:14:36 06/23/20 24 06/23/2024 CBC WITH DIFF MCHC 32.8 g/dL 32.0-3 6.0 Not Available [facility] (Lab) [address], [place], [address], 06/23/2024 13:14:36 06/23/20 24 06/23/2024 CBC WITH DIFF RDW 14.2 % 11.5-1 4.5 Not Available [facility] (Lab) [address] [facility], [place], [address], 06/23/2024 13:14:36 06/23/20 24 06/23/2024 CBC WITH DIFF platelet count 182 x10'3 /uL 130-40 0 Not Available [facility] (Lab) [address], [place], [address], 06/23/2024 13:14:36 06/23/20 24 06/23/2024 CBC WITH DIFF MPV 9.9 fL 9.3-12 .2 Not Available [facility] (Lab) [address] [facility], [place], [address], 06/23/2024 13:14:36 06/23/20 24 06/23/2024 CBC WITH DIFF diff type AUTOMA SWAPNA DIFFER ENTIAL Not Available [facility] (Lab) [address] [facility], [place], [address], 06/23/2024 13:14:36 06/23/20 24 06/23/2024 CBC WITH DIFF neutrophils 52.7 % Not Available [facility] (Lab) [address] [facility], [place], [address], 06/23/2024 13:14:36 06/23/20 24 06/23/2024 CBC WITH DIFF lymphocytes 37.7 % Not Available [facility] (Lab) [address] [facility], [place], [address], 06/23/2024 13:14:36 06/23/20 24 06/23/2024 CBC WITH DIFF monocytes 7.4 % Not Available [facility] (Lab) [address] [facility], [place], [address], 06/23/2024 13:14:36 06/23/20 24 06/23/2024 CBC WITH DIFF eosinophils 1.3 % Not Available [facility] (Lab) [address] [facility], [place], [address], 06/23/2024 13:14:36 06/23/20 24 06/23/2024 CBC WITH DIFF basophils 0.6 % Not Available [facility] (Lab) [address] [facility], [place], [address], 06/23/2024 13:14:36 06/23/2006/23/2024 CBC WITH DIFF immature granulocytes 0.3 % Not Available [facility] (Lab) [address] [facility], [place], [address], 06/23/2024 13:14:36 06/23/20 24 06/23/2024 CBC WITH DIFF abs. neutrophils 5.31 x10'3 /uL 1.80-7 .70 Not Available [facility] (Lab) [address] [facility], [place], [address], 06/23/2024 13:14:36 06/23/20 24 06/23/2024 CBC WITH DIFF abs. lymphocytes 3.80 x10'3 /uL 1.00-4 .80 Not Available [facility] (Lab) [address], [place], [address], 06/23/2024 13:14:36 06/23/20 24 06/23/2024 CBC WITH DIFF abs. monocytes 0.75 x10'3 /uL 0.24-0 .86 Not Available [facility] (Lab) [address] [facility], [place], [address], 06/23/2024 13:14:36 06/23/2003 0706/23/2024 CBC WITH DIFF abs. eosinophils 0.13 x10'3 /uL 0.04-0 .36 Not Available [facility] (Lab) [place], [address], 06/23/2024 13:14:36 06/23/20 24 06/23/2024 CBC WITH DIFF abs. basophils 0.06 x10'3 /uL 0.01-0 .08 Not Available [facility] (Lab) [place], [address], 06/23/2024 13:14:36 06/23/20 24 06/23/2024 CBC WITH DIFF abs. immature grans 0.03 x10'3 /uL 0.00-0 .49 Not Available [facility] (Lab) One [facility], [place], [address], 06/23/2024 13:14:36 06/23/20 24 06/23/2024 BETA- HCG, QUANT beta-HCG, quant 1894 mIU/m L WEEKS OF PREGN PADDY REFER ENCE RANGE S Non-p regna nt femal e < or = 2 0.2 - 1 5 - 50 1 - 2 50 - 500 2 - 3 100 - 5000 3 - 4 500 - 10,00 0 4 - 5 1000 - 50,00 0 5 - 6 10,00 0 - 100,0 00 6 - 8 15,00 0 - 200,0 00 2 - 3 MONTH S 10,00 0 - 100,0 00 Not Available [facility] (Lab) [place], [address], 06/23/2024 14:50:20 06/23/20 24 06/28/2024 SJS SURGI KIM PATHO LOGY [facility] [address] [place] [address] Telep xin: , exten diane 07 Patho logy Repor t Surgi kim Patho logy Repor t Name: ZACH LUX Speci men #: [id number] Age: [birth year] (Age: 24) Locat ion: NOA Bose Sex: F Proce dure Date: 06/23 Hospi jose david #: [id number] Date Recei ed: 06/24 Date Repor swapna: 06/28 Provi oleg: NIK Miranda MD [facility] e: Intra uteri ne mass Clini kim Histo ry: Menom etror rhagi a. Incom plete misca rriag e. Gross Descr iptio n: Recei ed in forma emily, label ed with a patie nt label and as intr auter ine mass is a 3.5 x 3.5 x 0.8 [address] gate of pink laura tissu e fragm ents inter mixed with clott ed blood . No parts are gross ly ident ified . Repre senta tive tissu e is submi tted in casse ttes 1 throu gh 3. Pleas e note: Follo wing signo ut, the speci men is retur zechariah to [facility] jose david [place], pendi ng dispo sitio n sonali du ts. Gross exami natio n (when appli cable ), inter preta tion, and sign out were perfo rmed at [facility] jose david, [address] [facility], [place] [address] . 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 -Foca l exagg erate d place ntal site. IC: TWC, OWK, CJD Za ctron icall y Arlene d Out ASHLIE SHAH MD Not Available [facility] (Lab) [address] [facility], [place], [address], 06/28/2024 12:58:56 06/28/20 24 06/29/2024 HCG, TOTAL , QUANT HCG, total, quant 62 mIU/m L <5 high Refer ence Range s are for femal es aged 18 years - Adult Nonpr egnan t or preme nopau wallace <5 Postm enopa usal <10 Value s from diffe rent assay metho ds may vary. The use of this assay to monit or or to diagn ose patie nts with cance r or any other condi tion unrel ated to pregn paddy has not been valid ated by the [facility] actur er of this assay . Not Available [address], [address], 06/29/2024 12:49:07 10/03/19 25 10/03/2024 pregn paddy test, urine HCG positi ve Not Available [facility] [place] [address] [place] [address], [address], 10/03/2024 17:47:25 10/11/19 25 10/12/2024 OB PANEL - STD BLOOD WORK hep BS Ag Non-Re active non-re active normal Not Available [address], [address], 10/13/2024 09:23:12 10/11/19 25 10/12/2024 OB PANEL - STD BLOOD WORK hep C Ab Non-Re active non-re active normal Not Available [address], [address], 10/13/2024 09:23:12 10/11/19 25 10/12/2024 OB PANEL - STD BLOOD WORK HIV 1/2 Ag/Ab Non-Re active non-re active normal Not Available [facility] [address] [place] [address], [address], 10/13/2024 09:23:12 10/11/19 25 10/12/2024 OB PANEL - STD BLOOD WORK syphilis Ab Non-Re active non-re active normal Not Available [address], [place], [address], 10/13/2024 09:23:12 10/11/19 25 10/12/2024 OB PANEL - STD BLOOD WORK rubella Ab IgG 81.5 IU/mL normal INTER PRETI VE INFOR MATIO N: Rubel la Antib scarlet, IgG. < 5.0 IU/mL ..... ..... . Not consi stent with immun ity 5.0 - 9.9 IU/mL ..... . Equiv ocal: Indet ermin ate-R epeat testi ng in 10-14 days may be helpf ul. > or = 10.0 IU/mL ... Consi stent with immun ity The prese nce of Rubel la IgG antib scarlet sugge st respo nse to immun izati on or prior /curr ent expos ure to the Rubel la virus . Not Available [address], [place], [address], 10/13/2024 09:23:12 10/11/19 25 10/12/2024 CT/NG chlamydia trachomatis CT neg negati ve normal This repor t is inten ded for us in clini kim monit oring and manag ement of patie nts. It is not inten ded for use in medic al-le gal appli catio n. Not Available [address], [address], 10/13/2024 09:25:03 10/11/19 25 10/12/2024 CT/NG neisseria gonorrhoeae GC neg negati ve normal This repor t is inten ded for us in clini kim monit oring and manag ement of patie nts. It is not inten ded for use in medic al-le gal appli catio n. Not Available [address], [address], 10/13/2024 09:25:03 10/11/19 25 10/13/2024 VARIC NGUYEN ZOSTE R VIRUS ANTIB SCARLET (IGG) varicella zoster virus antibody (IgG) 12.60 S/co normal Signa l to Cut-o ff S/CO Inter preta tion ----- ---- ----- ----- ----- ----- -- <1.00 Negat maría - Antib scarlet not detec swapna > or = 1.00 Posit maría - Antib scarlet detec swapna A posit maría resul t indic ates that the patie nt has antib scarlet to VZV but does not diffe renti ate betwe en an activ e or past infec tion. The clini kim diagn osis must be inter prete d in conju nctio n with the clini kim signs and sympt oms of the patie nt. This assay relia raisa measu res immun ity due to previ ous infec tion but may not be sensi tive enoug h to detec t antib odies induc ed by vacci natio n. Thus, a negat maría resul t in a vacci nated indiv idual does not neces saril y indic ate susce ptibi lity to VZV infec tion. A more sensi tive test for vacci natio n-ind uced immun ity is Varic nguyen Felisae r Virus Antib scarlet Immun ity Scree n, ACIF. Not Available [facility] [address] [place], [address], 10/13/2024 13:15:15 10/11/19 25 10/13/2024 MEASL ES AB (IGG) , IMMUN E STATU S measles Ab (IgG), immune status >300.0 0 AU/mL normal AU/mL Inter preta tion ----- ----- ----- ---- <13.5 0 Not consi stent with immun ity 13.50 -16.4 9 Equiv ocal >16.4 9 Consi stent with immun ity The prese nce of measl es IgG sugge sts immun izati on or past or curre nt infec tion with measl es virus . For addit ional infor janusz mejia e refer to http: //[facility] zbigniew patelQue stDia gnost ics.c om/fa q/FAQ 162 (This link is being provi ded for infor jarad davila/ educjuliana garcia purpo ses only. ) Not Available [address] [address] [place], [address], 10/13/2024 13:15:15 10/11/19 25 10/13/2024 ANTIB SCARLET SCREE N, RBC W/REF L ID, TITER AND AG antibody screen, RBC w/refl id, titer and Ag NO ANTIBO DIES DETECT ED normal Refer ence range No antib odies detec swapna This assay is a scree fei test for the detec tion of red blood cell antib odies . The test is not to be used for pretr ansfu diane scree fei or for the medic al manag ement of an alloi mmuni zed pregn paddy. Not Available [address] [address] [place], [address], 10/13/2024 13:15:16 10/11/19 25 10/13/2024 CULTU RE, URINE , ROUTI NE culture, urine, routine SEE NOTE abnormal CULTU RE, URINE , ROUTI NE Micro Numbe r: [id number] Test Statu s: Final Speci men Sourc e: Urine Speci men Quali ty: Adequ ate Resul t: 10,00 0-49, 000 CFU/m L of Group B Strep tococ cus isola swapna Beta- hemol ytic strep tococ ci are predi ctabl y susce ptibl e to Penic illin and other beta- lacta ms. Susce ptibi lity testi ng not routi sabrina perfo rmed. Pleas e conta ct the labor atory withi n 3 days if susce ptibi lity testi ng is marguerite ed. Comme nt: Eryth romyc in and clind amyci n are not recom omid d for treat ment of urina ry tract infec tions , but clind amyci n may be usefu l for treat ment of recto vagin al colon izati on or infec tion. Any amoun t of group B Strep tococ cus in urine speci mens obtai zechariah from pregn ant femal es is a marke r of genit al tract colon izati on. If this patie nt is pregn ant, pleas e refer to ACOG guide lines for appro priat e scree fei and manag ement of pregn ant women . COMME NT: Mixed genit al radha isola swapna. These super ficia l bacte william are not indic ative of a urina ry tract infec tion. No furth er organ ism ident ifica tion is warra nted on this speci men. If clini kaylyn indic ated, recol lect clean -catc h, mid-s tream urine and trans alaina immed iatel y to Urine Cultu re Trans port Tube. Not Available [employer] [facility] [address] [place], [address], 10/13/2024 13:15:17 10/11/19 25 10/12/2024 CBC (INCL UDES DIFF/ PLT) WBC 11.4 thous and/u L 4.0 - 9.8 high Not [place], [address], 10/14/2024 10:56:12 10/11/19 25 10/12/2024 CBC (INCL UDES DIFF/ PLT) RBC 4.7 mary anne on/uL 3.9 - 4.9 normal Not [place], [address], 10/14/2024 10:56:12 10/11/19 25 10/12/2024 CBC (INCL UDES DIFF/ PLT) hemoglobin 13.1 g/dL 11.8 - 14.8 normal Not [place], [address], 10/14/2024 10:56:12 10/11/19 25 10/12/2024 CBC (INCL UDES DIFF/ PLT) hematocrit 38.7 % 35.5 - 44.0 normal Not Available [facility] [address] [place] [address], [address], 10/14/2024 10:56:12 10/11/19 25 10/12/2024 CBC (INCL UDES DIFF/ PLT) MCV 82.7 fL 82.0 - 99.0 normal Not Available [address], [address], 10/14/2024 10:56:12 10/11/19 25 10/12/2024 CBC (INCL UDES DIFF/ PLT) MCH 28.0 pg 27.2 - 32.6 normal Not Available [address], [address], 10/14/2024 10:56:12 10/11/19 25 10/12/2024 CBC (INCL UDES DIFF/ PLT) MCHC 33.9 g/dL 31.5 - 35.5 normal Not Available [address], [address], 10/14/2024 10:56:12 10/11/19 25 10/12/2024 CBC (INCL UDES DIFF/ PLT) RDW-CV 13.2 % 11.5 - 14.5 normal Not Available [address], [address], 10/14/2024 10:56:12 10/11/19 25 10/12/2024 CBC (INCL UDES DIFF/ PLT) platelet 165 thous and/u L 140 - 350 normal Not Available [address], [address], 10/14/2024 10:56:12 10/11/19 25 10/12/2024 CBC (INCL UDES DIFF/ PLT) MPV 11.1 fL 9.3 - 12.4 normal Not Available [address], [address], 10/14/2024 10:56:12 10/11/19 25 10/12/2024 CBC (INCL UDES DIFF/ PLT) absolute neutrophil 7.89 thous and/u L 1.90 - 7.00 high Not Available [address], [address], 10/14/2024 10:56:12 10/11/19 25 10/12/2024 CBC (INCL UDES DIFF/ PLT) absolute lymphocyte 2.42 thous and/u L 0.70 - 4.50 normal Not Available [address], [address], 10/14/2024 10:56:12 10/11/19 25 10/12/2024 CBC (INCL UDES DIFF/ PLT) absolute monocyte 0.73 thous and/u L 0.10 - 1.30 normal Not Available [address], [address], 10/14/2024 10:56:12 10/11/19 25 10/12/2024 CBC (INCL UDES DIFF/ PLT) absolute eosinophil 0.06 thous and/u L <0.70 normal Not Available [address], [address], 10/14/2024 10:56:12 10/11/19 25 10/12/2024 CBC (INCL UDES DIFF/ PLT) absolute basophil 0.18 thous and/u L <0.20 normal Not Available [address], [address], 10/14/2024 10:56:12 10/11/19 25 10/12/2024 CBC (INCL UDES DIFF/ PLT) absolute immature granulocyte 0.12 thous and/u L <0.03 high Not Available [address], [address], 10/14/2024 10:56:12 10/11/19 25 10/14/2024 HEMOG LOBIN A1C hemoglobin A1C 4.8 % <5.7 normal The refer ence range for HbA1c is indic ated in the table below . Sugge sted Diagn osis =6.5% Consi stent with diabe kalyn 5.7 6.4% Consi stent with incre ased risk for diabe kalyn (pred iabet ic) <5.7% Consi stent with the absen ce of diabe kalyn Not Available [facility] [address] [place], [address], 10/14/2024 13:21:49 10/11/19 25 10/14/2024 DRUG ABUSE PANEL 7 W/CON FIRM amphetamines Negati ve negati ve normal Not Available [facility]ell [facility] [address] [place], [address], 10/14/2024 13:21:51 10/11/19 25 10/14/2024 DRUG ABUSE PANEL 7 W/CON FIRM barbiturates Negati ve negati ve normal Not Available [facility]ell [facility] [address] [place], [address], 10/14/2024 13:21:51 10/11/19 25 10/14/2024 DRUG ABUSE PANEL 7 W/CON FIRM benzodiazepi yumiko Negati ve negati ve normal Not Available Howell [facility] [address] [place], [address], 10/14/2024 13:21:51 10/11/19 25 10/14/2024 DRUG ABUSE PANEL 7 W/CON FIRM cocaine metabolites Negati ve negati ve normal Not Available Howell [facility] [address] [place], [address], 10/14/2024 13:21:51 10/11/19 25 10/14/2024 DRUG ABUSE PANEL 7 W/CON FIRM cannabinoids Presum ptive Positi ve negati ve abnormal Not Available Howell [facility] [address] [place], [address], 10/14/2024 13:21:51 10/11/19 25 10/14/2024 DRUG ABUSE PANEL 7 W/CON FIRM methadone Negati ve negati ve normal Not Available Howell [facility] [address] [place], [address], 10/14/2024 13:21:51 10/11/19 25 10/14/2024 DRUG ABUSE PANEL 7 W/CON FIRM opiates Negati ve negati ve normal Not Available Howell [facility] [address] [place], [address], 10/14/2024 13:21:51 10/11/19 25 10/14/2024 DRUG ABUSE PANEL 7 W/CON FIRM creatinine, urine 98 mg/dL 20 - 275 normal Not Available Howell Cornell [address] [place], [address], 10/14/2024 13:21:51 06/23/20 24 06/22/2024 US, trans vagin al No observ ation record ed. [email or web address] [address], [place], [address], 06/25/2024 17:14:37 10/12/19 25 10/10/2024 US, trans vagin al No observ ation record ed. [email or web address] [address], [place], [address], 10/16/2024 19:12:30 Result Notes None recorded. Problems Name Problem SNOMED Code Status Onset Date Resolution Date Notes Provider Name and Address Organization Details Recorded Time [id number] Active 025 Atiya Becker, [facility] [address] [place], [address] , [facility] 19:10:29 Problem Notes None recorded. Procedures Surgical History Date Name Laterality Status Provider Name and Address Organization Details Recorded Time 06/23/20 24 hysteroscopy completed Madie Strohl [facility] 06/28/2024 15:17:01 06/23/20 24 dilation and curettage of uterus completed Madie Sansocie [facility] 06/28/2024 15:17:17 10/10/19 24 Date of Last Pap Smear completed Madie Curtis [facility] 05/25/2024 13:04:04 Imaging Results Imaging Date Name Status LastModified by Organization Details LastModified Time 06/22/2024 US, transvaginal completed [email or web address] [address], [place], [address], 06/25/2024 17:14:37 10/10/2024 US, transvaginal completed Alisha [address], [place], [address], 10/16/2024 19:12:30 Procedure Notes None recorded. Medical Equipment None Reported. Allergies No known drug allergies Medications Name Sig Start Date Stop Date Status Note LastModified by Organization Details LastModified Time hydrocodone 5 mg-acetamin ophen 325 mg tablet TAKE 1 TABLET BY MOUTH EVERY 6 HOURS NEEDED FOR ACUTE PAIN 06/22 completed Not Available Not Available Not Available metronidazo le 0.75 % (37.5 mg/5 gram) vaginal gel PLACE VAGINALLY EVERY NIGHT AT BEDTIME FOR 5 DAYS 06/22 completed Not Available Not Available Not Available ketorolac 10 mg tablet 10/03 completed Not Available Not Available Not Available oxycodone-a cetaminophe n 5 mg-325 mg tablet TAKE 1 TABLET BY MOUTH EVERY 4 HOURS NEEDED FOR ACUTE PAIN 10/03 completed Not Available Not Available Not Available estradiol 1 mg tablet TAKE 1 TABLET BY MOUTH TWICE DAILY FOR 5 DAYS 10/03 completed Not Available Not Available Not Available tobramycin 0.3 % eye drops 06/22 completed Not Available Not Available Not Available docusate sodium 100 mg capsule TAKE 1 CAPSULE BY MOUTH EVERY DAY 06/22 completed Not Available Not Available Not Available doxycycline hyclate 100 mg tablet 06/28 completed Not Available Not Available Not Available metoclopram dedrick 10 mg tablet TAKE 1 TABLET BY MOUTH THREE TIMES DAILY BEFORE MEALS active Not Available Not Available No t Available hydroxyzine pamoate 25 mg capsule TAKE 1 TO 2 CAPSULES( 25 TO 50 MG) BY MOUTH FOUR TIMES DAILY NEEDED FOR ITCHING OR ANXIETY OR INSOMNIA OR NAUSEA OR PAIN 10/03 completed Not Available Not Available Not Available nitrofurant oin monohydrate /macrocryst als 100 mg capsule 06/22 completed Not Available Not Available Not Available 28 mg iron-800 mcg tablet TAKE 1 TABLET BY MOUTH DAILY active Not Available Not Available No t Available Vitals Date Recorded Body height Body mass index (BMI) Body weight Systolic blood pressure Diastolic blood pressure Provider Name and Address Organization Details Last Updated DateTime 06/22/2024 162.56 cm 21.5 kg/m2 78688.05 g 108 mm[Hg] 68 mm[Hg] Chayito Klein [facility] 4 12:34:53 Date Recorded Body height Body mass index (BMI) Body weight Body temperature Systolic blood pressure Diastolic blood pressure Provider Name and Address Organization Details Last Updated DateTime 162.56 cm 22.2 kg/m2 20300.1 3 g 97.3 [degF] 102 mm[Hg] 66 mm[Hg] Madie Wilkinson [facility] 4 16:36:20 Date Recorded Body height Body mass index (BMI) Body weight Systolic blood pressure Diastolic blood pressure Provider Name and Address Organization Details Last Updated DateTime 10/03/2024 162.56 cm 22.5 kg/m2 95987.6 g 100 mm[Hg] 60 mm[Hg] Genie Neva [facility] 5 17:43:43 Date Recorded Body height Provider Name an d Address Organization Details Last Updated DateTime 10/10/2024 162.56 cm Tramea Neva [facility] 10/10/2024 18:18:09 Date Recorded Body height Body mass index (BMI) Body weight Systolic blood pressure Diastolic blood pressure Provider Name and Address Organization Details Last Updated DateTime 11/01/2024 162.56 cm 23.7 kg/m2 66233.75 g 108 mm[Hg] 60 mm[Hg] Ashwin iDaz [facility] 5 15:43:27 Social History Question Answer Notes LastModified by Organizat ion Details LastModified Time Tobacco Smoking Status Never Smoker Madie poe, [employer] 05/25/2024 13:06:27 What Is Your Level Of Alcohol Consumption? Occasional [email or web address] Information not available 05/25/2024 How Many Times Per Week Do You Consume Alcohol? Less Than 1 Time Per Week [email or web address] Information not available 05/25/2024 If You Are , What Was Your Level Of Alcohol Consumption Prior To ? None Information not available 05/25/2024 Are You Blind Or Do You Have Difficulty Seeing? No [email or web address] Information not available 05/25/2024 Are You Currently Employed? Yes Information not available 05/25/2024 Are You Deaf Or Do You Have Serious Difficulty Hearing? No [email or web address] Information not available 05/25/2024 What Type Of Diet Are You Following? REGULAR Information not available 05/25/2024 Which Illicit Or Recreational Drugs Have You Used? MJ [email or web address] Information not available 05/25/2024 Do You Or Have You Ever Used E-cigarettes Or Vape? 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 0 [email or web address] Information not available 05/25/2024 What Is Your Relationship Status? Single Information not available 10/03/2024 Are You Sexually Active? Yes [email or web address] Information not available 06/22/2024 Do You Or Have You Ever Used Smokeless Tobacco? Never Used Smokeless Tobacco [email or web address] Information not available 05/25/2024 Do You Use Any Illicit Or Recreational Drugs? Yes Information not available 05/25/2024 Have You Used IV Drugs? No [email or web address] Information not available 05/25/2024 Do You Or Have You Ever Used Any Other Forms Of Tobacco Or Nicotine? Yes [email or web address] Information not available 05/25/2024 Sex: Unknown Functional Status Question Answer Note LastModified by Organization D etails LastModified Time What is your exercise level? None [email or web address] Information not available 05/25/2024 Mental Status None recorded. Family History Relationship Description Onset Age of this Age Resolved Age Notes LastModified by Organization Details LastModified Time Father No current problems or disability Not available 05/25 13:05:41 Mother No current problems or disability [email or web address] Not available 05/25 13:05:41 Medical History Condition Response Other Cancer N High Blood Pressure N Colon Cancer N Cytomegalovirus N Hyperthyroidism N Breast Cancer N Herpes (HSV) N Blood Transfusion N MRSA N Lung Cancer N Hypothyroidism N Depression N Incontinence N Panic Attacks N Neurological Disorder N Deep Vein Thrombosis N Anxiety Disorder N Autoimmune disease N Arthritis N Tuberculosis/Positive PPD N Shingles N Polycystic Ovarian Syndrome N Infertility N Cervical Cancer N Chlamydia N Hematuria N Stroke N Varicosities N Crohn's Disease N Seasonal allergies N Alzheimer's/Dementia N COPD/Emphysema N HPV/Genital Warts N Endometriosis N IBS (Irritable Bowel Syndrome) N History of Abnormal Pap N High Cholesterol N Liver Disease N Kidney Infection N Fibromyalgia N Ulcer N Kidney Disease N HIV N Gallbladder disease N Sickle Cell Disease/Trait N Von Willebrand disease N ADD/ADHD N Eating Disorder N Anemia N Diabetes Mellitus (non-insulin dependent ) N Ovarian Problems N Multiple Sclerosis N Gonorrhea N Frequent Urinary Tract infections N Osteopenia N Headaches/migraines N GERD (reflux) N Ovarian Cancer N Diabetes (insulin dependent) N Seizures/Epilepsy N Breast Problems N Fibroids N Heart Attack N Asthma N Lupus N Endometrial Cancer N Rubella N Blood Clotting Disorder N Bipolar Disorder N Diabetes Mellitus (during ) N Ulcerative Colitis N Hepatitis N Heart Disease N Pulmonary Embolism N RPR N Chicken Pox N Osteoporosis N Gynecological History Statement/Question Response Date of Last Colonoscopy Flow Heavy Date of LMP 06/12/2024 Most Recent Bone Density HPV Vaccine N Date of Last Pap Smear 10/10/2023 Duration of Flow (days) 5 Most Recent Mammogram Current Control Method Age at Menarche 12 Obstetrics History GPAL:G 2 P 0 0 1 0 Type Value Spontaneous 1 Total 2 Past Encounters Encounter ID Performer Location Encounter Start Date Encounter Closed Date Diagnosis/Indication Diagnosis SNOMED-CT Code Diagnosis ICD10 Code Diagnosis Note [id number] Rd Herring MD [facility] [address] [place] [address] 05/25/2024 12:37:36 05/30/2024 17:17:47 Depression screening 128338415 Z13.31 See Screening Section for EPDS Questionna vida Result Gynecologi c examination 04985474 Z01.89 y.o. here for annual exam. - Pap today with STI screen - Contracept maría counseling : Discussed options including OCPs, NuvaRing, Nexplanon, hormonal and copper IUDs. Discussed risks, benefits, and side effects of each option, including risk of VTE with hormonal contracept ion and uterine perforatio n with IUD. - Routine labs today - Depression screen NEG - BMI counseling , diet and exercise reviewed - RTO for IUD placement or annual Surveillan ce of contraception 751824106 Z30.40 Pt educated on risks which include but not limited to stroke, blood clot or hypertensi on Vs benefits of use, and reviewed ACHES symptoms. Importance of daily administra tion within the same 30 minute time frame reinforced to pt, and on use of condoms or abstinence if dosing schedule is interrupte d. Refills sent. Plan to F/U PRN or at next [employer]. Menometrorrhagia 9815315 08 N92.1 Discussed causes of abnormal uterine bleeding, including structural (polyps, fibroids), hormonal including anovulatio n, hyperplasi a, and rarely cancer. Reviewed evaluation with pelvic US and endometria l biopsy. Briefly discussed options available for treatment depending on the results of evaluation including hormonal options (OCPs, progestins , Mirena), endometria l ablation, and other surgery. Chronic constipation 236 267798 K59.09 miralax 1 tsp - tblsp twice per day as well as benefiber 1 tsp - tbls twice per day and magnesium citrate 500mg twice per day(may use the fluid which is 1 tsp twice per day) and then adjust to as low a dose with the benefiber and miralax so u have soft BMs at least every other day Female hirsutism 9567019 [id number] Herring MD [facility] [address] [place] [address] 06/22/2024 11:35:15 06/27/2024 10:50:33 Menometrorrhagia 937665081 N92.1 Discussed causes of abnormal uterine bleeding, including structural (polyps, fibroids), hormonal including anovulatio n, hyperplasi a, and rarely cancer. Reviewed evaluation with pelvic US and endometria l biopsy. Briefly discussed options available for treatment depending on the results of evaluation including hormonal options (OCPs, progestins , Mirena), endometria l ablation, and other surgery.wi ll proceed with endometria l biopsy and hysterosco py and discussed benfits of visualizat ion of the cavity and directed biopsy as well as doing a cervical block and then we will discusse the pathology report and if benign we will do the procedure here and if it is malignant we will have you see csw oncology. if needed we will send in cytotec 200mcg orally bid x 2 days prior to the procedure and then one vaginally 1-3 hours prior to the procedure [id number] Rd Herring MD [facility] [address] [place] [address] 06/28/2024 16:14:13 07/04/2024 14:25:30 Postoperative visit 075832714 Z09 doing well and we will follow to zero and n discussed fertility and BC [id number] [facility] [address] [place] [address] 10/03/2024 17:31:12 10/03/2024 18:50:05 Missed period 79265206 N92.6 Unsure of LMP. Positive test at home and in the office.Alber garcia return tomorrow for US. Nausea and vomiting in 8695274751 O21.9 - pt c/o nausea of . - no evidence of HG- Reviewed etiology of N/V of . Recommend small, bland, regular meals q2-3hrs. Recommend starting Vit B6 and unisom - start at night and up to TID. Also discussed taking PNV with meal at night, avoiding water alone, and charles. Discussed expectatio ns for resolution of sx in 2nd trimester for most patients. ACOG handout given.F/u in 1 day for [place] [id number] Atiya Becker CNM [facility] [address] [place] [address] 10/10/2024 17:38:44 10/10/2024 19:57:19 Uncertain viability of 571758505 O36.80X0 Viable IUP w/+CA at 11.2 wks. CAM 04/29/2025 based on US.F/u next scheduled appt. - pt has appt scheduled for next week and would like to keep it. Normal 4389443 2 Z34.01 - discussed common concerns during - nausea of - advised patient to keep cracker at the bedside to eat beforegett ing out of bed in the morning, eat smaller more frequent meals during the day,and avoid mixing solids and liquids in the same meal. add protein snack at bedtime;]V it B6 & unisom as needed- vitamins and DHA avoidance of heavy exertion increase fluid intake rest - Instructed that it is important for women to get the whooping cough vaccine in the third trimester of every - COVID vaccine - reviewed ACOG recommenda tions; Advised to avoid sick contacts, practice social distancing , good handwashin g. If you develop respirator y symptoms, fever, cough, or shortness of breath you should contact healthcare provider immediatel y.-Flu vaccine as indicated- SAB precaution s: f/u immediatel y if 1) temp>101.0 , 2) abdominal pain, 3) vaginal bleeding greater than 1 pad/hr for greater than 2 hours- Toxoplasmo sis precaution s discussed- Physical/s exual activity discussed- Nutrition discussed- Environmen jose david/work hazards discussed- Tobacco, and [facility] [id number] Maite Lozano-Brandin , [facility] [address] [place] [address] 11/01/2024 15:29:05 11/01/2024 16:08:08 Gestation period, 14 weeks 37133079 Z3A.14 Normal 6108590 2 Z34.81 Health Concerns Section Related Observation LastModified by Organization Detai ls LastModified Time None Recorded Concern Status LastModified by Organization Details LastModified Time None Recorded Advance Directives Directive None Recorded Payers Encounter Date Sequence Insurance Name Policy Number Policy Burnett Covered Member ID Burnett Member ID Guarantor Name 06/22/2024 1 [facility] (MEDICAID HMO) [id number] Zach Castellon [id number] Zach Castellon 06/28/2024 1 [employer] [facility] [place] ([place] [id number] Zach Castellon [id number] Zach Castellon 10/03/2024 1 [employer] [facility] [place] [id number] Zach Castellon [id number] Zach Castellon 10/10/2024 1 [employer] [facility] [place] [id number] Zach Castellon [id number] Zach Castellon 11/01/2024 1 [employer] [facility] [place] [id number] Zach Castellon [id number] Zach Castellon Notes Date Note Type Note Provider Name and Address Organization Details Recorded Time 06/22/2024 text/html The patient derrick huitron consented to documentation via virtual scribe for this encounter. Zach is a 24-year-old female who presents today with complaints of irregular, painful, and heavy cycles. Patient states that her cycles are not once a month, lasting for 9 days. She denies any history of fibroids, ovarian cyst, STIs. Her last Pap smear was in 11-01-2023. Her last LMP was in 06-12-2024. She reports experiencing excruciating pain. She underwent US today. She states passed out yesterday and is currently on menses. She was seen at hospital in 04/02 due to her bleeding symptoms and was informed that her uterus was large and inflamed. She had a nexplanon in and states she had regular menses prior to that. She had removal of nexplanon on 08-01. Rd Herring MD [address] [place] [address], [phone], [facility] [employer] [facility] 06/24/2024 16:24:36 06/28/2024 text/html Post-OpReported bypatient.Onset/Timin g:date of surgery:; 06-23-2024 Quality:procedure:; hysteroscopy D &C with myosure Associated Symptoms:incision healing well; no fatigue; normal appetite; normal bowel function; no constipation; no nausea; no emesis; pain improving; no pain; no fever; no bleeding; no lower extremity edema/pain; no dysuria/urinary symptoms Rd Herring MD [address] [place] [address], [phone], [facility] [employer] [facility] 07/10/2024 17:57:49 10/03/2024 text/html Jeanine is here f or symptomspatient c/o nausea with no periodpatient state she had D&C atient state she has not had a period that she knows of since 03/2024 Atiya Becker CNM [address] [place] [address], [phone], [facility] [employer] [facility] 10/03/2024 18:49:59 11/01/2024 text/html Patient is here today for a routine OB visit. She is currently at {{6 7 8 9 10 11 12 13 14 15 16 17 18 19 20 21 22 23 24 25 26 27 28 29 30 31 32 33 34 35 36 37 38 39 40 41 14.3#}} weeks gestation. vitamins: {{yes* no}} She {{has has not*}} felt movement.She denies any complaints of the presence of vaginal bleed, leaking fluid, nausea, vomiting, headache or visual disturbances. Pt c/o abdominal cramps Maite Schmitt, MARY [address] [place], [address], [facility] [employer] 11/01/2024 16:05:53 OBGyn Episode Ob Episode Information Episode Created Date Number of Fetuses Patient Bloodtype Patient rh Status Prepregnancy Weight lbs Domestic Partner Domestic Partner Phone Father Name Athletics Director Status 10/17/19 25 1 OPEN Fetus Data First Name Last Name Admitted to NICU Weight (g) Sex Living Outcome Pediatric Complications Fetus ID Race Codes Race Delivery Type [id number] Cam Calculation Initial Cam Date Initial Exam Date Initial Exam Provider Initial Ultrasound Date Last Menstrual Period Date Ultra Sound Weeks Gestation 04/29/2025 10/16/2024 10/10/2024 06/12/2024 11 Eighteen To Twenty Week Cam Update Ultra Sound Date Fundal Height At Umbil Quickening Date Ultra Sound Latest Weeks Gestation Final Cam Confirmed By Final Cam Confirmed Date Final Cam Date Ultra Sound Latest Days Gestation 0 [email or web address] 10/16/2024 04/29/20 25 0 Pre- Flowsheet Flowsheet Date 11/01/2024 Menendez Score Blood Edema Fundus Height Fundus Units Glucose Ketones Leukocytes Nitrite Labor Signs Protein Cervic Dilation Cervic Effacement Cervic Station Type Weight in lbs Pre/Post Dialysis Refused With clothes [id number] BP Diastolic BP Location Tested BP Systolic BP Type 60 108 sitting Fetus Heart Rate Present A 153 Fetus Movement Comments Doing well, oriented to prac alexandr adn reviewed preg guide Menstrual History Last Menstrual Date Menses Monthly On Bcp Conception Prior Menses Frequency Hcg Plus Date Menarche Onset Age 1106/12/2024 Delivery Information Delivery Date Delivery Type Labor Anesthesia Weeks Gestation Incision Type Labor Labor Length Hrs Delivered By Post Complications Tubal Sterilization Discharge Date Comments Discharge Information Feeding Method Contraceptive Method Maternal HG B and HCT Levels
--- NOTE | 2024-12-03 17:00 | ED_ITS ---
HPI - Female Genitourinary General Chief complaint: Extremity Problem,Nontraumatic Stated complaint: pain in the buttock region Time Seen by Provider: 12/03/24 17:00 Focused HPI: Patient is a 24-year-old female who presents to the ER with bilateral buttocks pain and mild lower abdominal cramping. She reports the bilateral buttocks pain started approximately 2 weeks ago and has progressively gotten worse. Patient reports the pain does not radiate down her legs. She denies any urinary symptoms, recent fevers, or vaginal bleeding. Patient reports she does have an OB, Dr. Lozano, who she last saw before her pain started. She presented to urgent care earlier today who advised her to com e into the ER for an ultrasound. Patient reports she had ovarian surgery about 6 months ago due to ?excessive tissue on my ovary. GENERAL: Well-appearing, well-nourished, and in no acute distress. HEAD: Normocephalic, atraumatic. CHEST: Clear to auscultation. ?No respiratory distress. HEART: Regular rate and rhythm.? NEURO: ?Alert and oriented x3. Patient screened in triage and initial orders placed.? ?Additional care and disposition to be based upon?diagnostic testing and treatment. Related Data Home Medications ?Medication ?Instructions ?Recorded ?Confirmed ?Last Taken ?Type No Home Medications 12/03/24 12/03/24 Unknown History Allergies Allergy/AdvReac Type Severity Reaction Status Date / Time No Known Allergies Allergy Verified 12/03/24 16:28 Review of Systems Review of Systems: All systems reviewed & are unremarkable except as noted in HPI and below PMFSH Past Medical History Medical History Ovary, inflammation surgery to remove inflammatory tissue Social History Social History Smoking status: Never smoker Alcohol intake: former Substance use type: does not use Living arrangements: other Additional living arrangements comments: with significant other Gender identity (if verbalized by the patient): Female Exam Narrative: GENERAL: Well appearing, well-nourished, non-toxic, in no acute distress. HEAD: Normocephalic, atraumatic. NECK: Supple. No adenopathy, no masses. RESPIRATORY: Airway patent, respirations nonlabored. Clear to auscultation bilaterally, no rales, rhonchi, wheezing. CARDIOVASCULAR: Regular rate and rhythm without murmurs, rubs, or gallops. Peripheral pulses 2+ and equal bilaterally. ABDOMINAL: Soft, nontender, nondistended, no hepatosplenomegaly. Normoactive BS. MUSCULOSKELETAL: Moves all extremities. Strength/ROM intact without gross deformities. Straight leg test negative. SKIN: Warm, dry, normal color. No rashes. NEURO: A&O X3. Speech clear. Cranial nerves II-XII intact. No ataxic movements. PSYCHIATRIC: Appropriate mood and affect. Normal interaction. Course Vital Signs Vital signs: Vital Signs Temperature 36.8 C 12/03/24 17:02 Pulse Rate 90 12/03/24 17:02 Respiratory Rate 16 12/03/24 17:02 Blood Pressure 111/58 L 12/03/24 17:02 Pulse Oximetry 99 12/03/24 17:02 Oxygen Delivery Room Air 12/03/24 17:02 Temperature 36.8 C 12/03/24 17:02 Pulse Rate 90 12/03/24 17:02 Respiratory Rate 16 12/03/24 17:02 Blood Pressure 111/58 L 12/03/24 17:02 Pulse Oximetry 99 12/03/24 17:02 Oxygen Delivery Room Air 12/03/24 17:02 MDM - Female Genitourinary MDM Narrative Medical decision making narrative: Focused HPI: Patient is a 24-year-old female who presents to the ER with bilateral buttocks pain and mild lower abdominal cramping. She reports the bilateral buttocks pain started approximately 2 weeks ago and has progressively gotten worse. Patient reports the pain does not radiate down her legs. She denies any urinary symptoms, recent fevers, or vaginal bleeding. Patient reports she does have an OB, Dr. Lozano, who she last saw before her pain started. She presented to urgent care earlier today who advised her to come into the ER for an ultrasound. Patient reports she had ovarian surgery about 6 months ago due to ?excessive tissue on my ovary. Labs Ordered: Urinalysis Imaging Ordered: Ultrasound OB limited Medications Ordered: Tylenol 1 g p.o. Results: Patient's ultrasound indicates Single live fetus of cephalic presentation. Patient's urinalysis did not indicate a UTI. Diagnosis: Round ligament pain, sciatica Patient Education/Shared MDM: Results of urinalysis and ultrasound shared with patient. She endorses improvement following medication administration. Patient strongly advised to maintain hydration status upon discharge and follow-up with her OBGYN as soon as possible. She will be discharged home with no new prescriptions. Patient may use Tylenol for pain control. Strict return precautions provided. Patient verbalized understanding and is in agreement with plan. Vital signs stable at time of discharge. All questions answered. Differential Diagnosis Differential diagnosis: Likely urinary tract infection and other (Round ligament pain, sciatica) Lab Data Attestation: I reviewed the patient's lab results. Labs: Lab Results 12/03/24 12/03/24 Range/Units 20:39 20:42 Urine Color Yellow (Yellow) Urine Appearance Clear (Clear) Urine pH 7.0 (5.0-9.0) Ur Specific [place] 1.010 (1.001-1.035) Urine Protein Negative (Negative) mg/dL Urine Glucose (UA) Negative (Negative) mg/dL Urine Ketones Negative (Negative) mg/dL Ur Blood (Man) Negative (Negative) Urine Nitrate Negative (Negative) Urine Bilirubin Negative (Negative) Urine Urobilinogen 0.2 (<2.0) mg/dL Leukocyte Esterase Rfl Negative (Negative) JESSE/UL POC Urine HCG, Qual Positive (Negative) Imaging Data Attestation: I personally reviewed and interpreted this imaging study as follows: Radiologist's impression: Impressions Obstetrics Ultrasound 12/03/24 18:06 IMPRESSION: Single live fetus of cephalic presentation. Discharge Plan Discharge Clinical Impression: Sciatica, Pain of round ligament Patient Disposition: Home Condition: Stable Instructions: Antibiotic Form, Sciatica (ED) Additional Instructions: Please return to the ER with any worsening symptoms. Follow-up with your OBGYN as soon as possible. You may take Tylenol for pain control. Please remember to drink lots of water! Patient Language: Bel[place]an Prescriptions: No Action No Home Medications Follow-up/Referrals: PHYSICIAN NOT ON STAFF,NONSTAFF [Primary Care Provider] - Stand Alone Forms: Work/School Release IP Time of Disposition: 21:44
[2024-12-03 17:02] VITALS: BP 111/58; PULSE 90; RESP 16; TEMP 36.8; O2SAT 99
[2024-12-03] MEDS: ACETAMINOPHEN 500 MG TABLET 1000 MG PO (20:18)
--- OUTSIDE RECORDS SUMMARY | 2024-12-03 20:23 | XMS_ITS | Clinical Summary ---
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
--- OUTSIDE RECORDS SUMMARY | 2024-12-03 20:23 | XMS_ITS | Encounter Summary ---
Author Organization [facility] Address [address] [place] [address] Care Team Providers Care Juice Weigher Name Role Phone None, Provider Primary Care Provider Rd Blackman MD Primary Care Provider Encounter Details Date Type Department Care Team (Late st Contact Info) Description 06/22/2024 Prep for Procedure [facility] [place] [address] Rd Herring MD [address] [place] [address] Social History Tobacco Use Types Packs/Day Years [...] 12:25 PM Tamiko Camarillo RN Active * Lee Suicide Severity Rating Scale (Screener/Recent Self-Report) Question [...] (ABNORMAL) CBC W/DIFF AUTOMATED (06/23/2024 12:06 PM BEAUTY OPERATOR APPRENTICE) [facility] WBC 10.08 4.5 - 11.0 x10'3/uL 06/23/2024 12:14 PM [facility] RBC 4.46 4.20 - 5.40 x10'6/uL 06/23/2024 12:14 PM [facility] HGB 12.2 12.0 - 16.0 G/DL 06/23/2024 12:14 PM [facility] HCT 37.2(L) 38.0 - 48.0 % 06/23/2024 12:14 PM [facility] MCV 83.4 81.0 - 99.0 FL 06/23/2024 12:14 PM [facility] MCH 27.4 27.0 - 31.0 PG 06/23/2024 12:14 PM [facility] MCHC 32.8 32.0 - 36.0 G/DL 06/23/2024 12:14 PM [facility] RDW 14.2 11.5 - 14.5 % 06/23/2024 12:14 PM [facility] PLT 182 130 - 400 x10'3/uL 06/23/2024 12:14 PM [facility] MPV 9.9 9.3 - 12.2 FL 06/23/2024 12:14 PM [facility] DIFFERENTIAL TYPE AUTOMATED DIFFERENTIAL 06/23/2024 12:14 PM [facility] NEUTROPHILS % 52.7 % 06/23/2024 12:14 PM [facility] LYMPHOCYTES % 37.7 % 06/23/2024 12:14 PM BEAUTY OPERATOR APPRENTICE [facility] MONOCYTES % 7.4 % 06/23/2024 12:14 PM BEAUTY OPERATOR APPRENTICE [facility] EOSINOPHILS 1.3 % 06/23/2024 12:14 PM BEAUTY OPERATOR APPRENTICE [facility] BASOPHILS 0.6 % 06/23/2024 12:14 PM BEAUTY OPERATOR APPRENTICE [facility] IMMATURE GRANS % 0.3 % 06/23/20 12:14 PM BEAUTY OPERATOR APPRENTICE [facility] ABS. NEUTROPHILS 5.31 1.80 - 7.70 x10'3/uL 06/23/2024 12:14 PM BEAUTY OPERATOR APPRENTICE [facility] ABS. LYMPHOCYTES 3.80 1.00 - 4.80 x10'3/uL 06/23/2024 12:14 PM BEAUTY OPERATOR APPRENTICE [facility] ABS. MONOCYTES 0.75 0.24 - 0.86 x10'3/uL 06/23/2024 12:14 PM BEAUTY OPERATOR APPRENTICE [facility] ABS. EOSINOPHILS 0.13 0.04 - 0.36 x10'3/uL 06/23/2024 12:14 PM BEAUTY OPERATOR APPRENTICE [facility] ABS. BASOPHILS 0.06 0.01 - 0.08 x10'3/uL 06/23/2024 12:14 PM BEAUTY OPERATOR APPRENTICE [facility] ABS. IMMATURE GRANULOCYTES 0.03 0.00 - 0.49 x10'3/uL 06/23/2024 12:14 PM BEAUTY OPERATOR APPRENTICE [facility] 06/23/2024 12:0 [address] BE[address] OPERATOR APPRENTICE Rd Herring MD LABORATORY Final Result [facility] [address] [place] [address], [place] [phone] documented in this encounter Visit Diagnoses Diagnosis Menometrorrhagia- Primary Excessive or frequent menstruation documented in this encounter Care Teams Juice Weigher Relationship Specialty Start Date End Date None, Provider, PCP - General 08/07/21 06/22/24 Rd Herring MD [address] [place] [address] PCP - General HOSPITALIST 06/23/24 documented as of this encounter
--- OUTSIDE RECORDS SUMMARY | 2024-12-03 20:23 | XMS_ITS | Clinical Summary ---
Author Organization [facility] Address [address] [place] [id number] Care Team Providers Care Telephone Exchange Operator Name Role Phone Rd Herring MD Primary Care Provider Allergies No known active allergies Medications doxycycline [...] Comments Blood Pressure 97/79 06/23/2024 4:35 PM PIGMENT SUPPLIER Pulse 82 06/23/2024 4:35 PM PIGMENT SUPPLIER Temperature 36.9 C (98.5 F) 06/23/2024 4:35 PM PIGMENT SUPPLIER Respiratory Rate 18 06/23/2024 4:35 PM PIGMENT SUPPLIER Oxygen Saturation 100% 06/23/2024 4:35 PM PIGMENT SUPPLIER Inhaled Oxygen Concentration - - Weight 56.6 kg (124 lb 12.5 oz) 024 12:25 PM PIGMENT SUPPLIER Height 162.6 cm (5' 4 ) 06/23/2024 12:2 5 PM PIGMENT SUPPLIER Body Mass Index 21.42 06/23/2024 12:25 PM PIGMENT SUPPLIER Plan of Treatment Health Maintenance Due Date [...] complete this [place] [address] [place] Advance Directives * Full Code (Latest Code Status on File) Date Activated Date Inactivated Comments 06/23/2024 2:56 PM 06/23/2024 6:59 PM Care Teams Telephone Exchange Operator Relationship Specialty Start Date End Date Rd Herring MD [address] [place] [address] PCP - General HOSPITALIST 06/23/24
--- OUTSIDE RECORDS SUMMARY | 2024-12-03 20:23 | XMS_ITS | Referral Summary ---
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
[2024-12-03 20:43] LABS: BEDSIDEPREGUCG Positive (Negative)
[2024-12-03 20:45] LABS: Add Urine Microscopic? NO; Appearance Urine Clear (Clear); Bilirubin Urine Negative (Negative); Blood Urine Negative (Negative); Color Urine Yellow (Yellow); Glucose Urine UA Negative (Negative); Ketones Urine Negative (Negative); Leukocyte Esterase Ur Negative LEU/UL (Negative); Nitrate Urine Negative (Negative); Protein Urine Negative (Negative); Urobilinogen Urine 0.2 mg/dL (<2.0)
[2024-12-03 21:59] VITALS: BP 114/61; PULSE 82; RESP 14; O2SAT 100
== END 2024-12-03 22:00 | disposition home or self-care (01) ==
PROVIDERS: Emergency Provider Registered Nurse
DX: O26.892 Other specified pregnancy related conditions, second trimester (principal); R10.2 Pelvic and perineal pain; O99.891 Other specified diseases and conditions complicating pregnancy; M54.32 Sciatica, left side; M54.31 Sciatica, right side; Z3A.18 18 weeks gestation of pregnancy
CPT/HCPCS: 76815; 81003; 81025; 99284; A9270